=== PATIENT | male | born 1995 | race Caucasian/White ===

== ENCOUNTER 2017-06-12 03:03 | Emergency (ER) | payer OTHER ==
[~2017-06-12] VITALS: Ht 172.7 cm; Wt 65.0 kg
[~2017-06-12 03:03] MED LIST: KEFLEX500 MG PO; NAPROSYN500 MG PO; NORCO 5/3251 TABLET PO
[2017-06-12 04:20] VITALS: BP 120/80
== END 2017-06-12 04:30 | disposition home or self-care (01) ==
LOC: EME 03:03
DX: F43.23 Adjustment disorder with mixed anxiety and depressed mood (principal); F41.1 Generalized anxiety disorder
CPT/HCPCS: 80048; 85025; 90839; 99281; 99283; G0480

== ENCOUNTER 2017-09-15 19:22 | Emergency (ER) | payer OTHER ==
[~2017-09-15] VITALS: Ht 175.3 cm; Wt 69.4 kg
[2017-09-15 20:11] LABS: HEMATOCRIT 46.2 % (38.0-50.0); MCHC 34.6 G/DL (30.0-36.0); MCV 83.8 FL (86-99); MEAN PLAT.VOLUME 9.7 uM^3 (9.0-12.4); PLATELET COUNT 190 K/uL (156-360); RBC DIS.WIDTH-SD 36.7 % (39-53); RED BLOOD COUNT 5.51 M/uL (4.00-5.50); WHITE BLOOD COUNT 6.6 K/uL (4.1-10.2)
[2017-09-15 20:21] LABS: CHLORIDE 106 mEq/L (99-109); POTASSIUM 4.2 mEq/L (3.7-5.4); SODIUM 139 mEq/L (136-147)
[2017-09-15 20:23] LABS: GLUCOSE 93 mg/dL (70-99)
[2017-09-15 20:24] LABS: ANION GAP 7 MEQ/L (2-14)
[2017-09-15 20:25] LABS: TOTAL BILIRUBIN 0.2 mg/dL (0.0-1.0)
[2017-09-15 20:26] LABS: ALKALINE PHOSPHATASE 77 IU/L (3-129)
[2017-09-15 20:27] LABS: GFR ESTIMATE (CALCULATED) > 59 mL/min/
[2017-09-15 20:28] LABS: UREA NITROGEN (BUN) 9 mg/dL (9-23)
[2017-09-15 20:44] LABS: ADD MIUA? NO; BILIRUBIN NEGATIVE; BLOOD NEGATIVE; COLOR YELLOW ((YELLOW)); GLUCOSE (STRIP) NEGATIVE; KETONES NEGATIVE; LEUKOCYTES NEGATIVE; NITRITE NEGATIVE; PROTEIN (STRIP) NEGATIVE; SPECIFIC GRAVITY 1.019 (1.000-1.030); UCUL ADDED? NO; UROBILINOGEN 0.2 MG/DL (0.2-1.0)
[2017-09-15] MEDS ORDERED: PEPCID20 MG PO (22:15)
[2017-09-15] MEDS ORDERED: ZOFRAN4 MG PO (22:15)
[2017-09-15 22:36] VITALS: BP 112/76
== END 2017-09-15 22:37 | disposition home or self-care (01) ==
LOC: EME 19:22
DX: R10.10 Upper abdominal pain, unspecified (principal); R11.2 Nausea with vomiting, unspecified; F31.9 Bipolar disorder, unspecified
CPT/HCPCS: 80053; 81003; 85027; 99281; 99284